=== PATIENT | male | born 1975 | race American Indian/Alaskan Native ===

== ENCOUNTER 2017-04-19 19:55 | Emergency (ER) | payer SELFPAY ==
[2017-04-19 20:10] VITALS: BP 119/77
[2017-04-19 20:48] LABS: Hematocrit 40.5 % (35.5-45.6); Hemoglobin 13.6 gm/dl (11.8-15.2); Mean Corpuscular HGB Conc 34 % (32-34); Mean Corpuscular Hemoglobin 34 pg (28-32); Mean Corpuscular Volume 102 fl (84-94); Platelet Count 489 K/mm3 (140-440); Red Blood Count 3.97 M/mm3 (3.65-5.03); Red Cell Distribution Width 14.7 % (13.2-15.2); White Blood Count 3.2 K/mm3 (4.5-11.0)
[2017-04-19 21:00] LABS: BUN/Creatinine Ratio 7.14; Blood Urea Nitrogen 5 mg/dL (9-20); Calcium 8.9 mg/dL (8.4-10.2); Carbon Dioxide 25 mmol/L (22-30); Chloride 100.6 mmol/L (98-107); Creatine Kinase 296 units/L (55-170); Glucose 88 mg/dL (75-100); Sodium 142 mmol/L (137-145)
[2017-04-19 21:05] LABS: Anion Gap 21 mmol/L; Potassium 4.1 mmol/L (3.6-5.0)
[2017-04-19 21:29] LABS: Blastocytes % (Manual) 0 %
[2017-04-19 21:32] LABS: Diff Status Complete; Large Platelets Few; Platelet Estimate Consistent w Auto; RBC Morphology Normal
--- NOTE | 2017-04-24 11:06 | ED Elopement Review ---
ED Pt Elopement review - Results review Lab results: Laboratory Tests 04/19/17 04/19/17 04/19/17 20:19 20:19 20:19 WBC RBC Hgb Hct MCV MCH MCHC RDW Plt Count Lymph % (Auto) Add Manual Diff Total Counted Seg Neutrophils % Seg Neuts % (Manual) Band Neutrophils % Lymphocytes % (Manual) Reactive Lymphs % (Man) Monocytes % (Manual) Eosinophils % (Manual) Basophils % (Manual) Metamyelocytes % Myelocytes % Promyelocytes % Blast Cells % Nucleated RBC % Seg Neutrophils # Man Band Neutrophils # Lymphocytes # (Manual) Abs React Lymphs (Man) Monocytes # (Manual) Eosinophils # (Manual) Basophils # (Manual) Metamyelocytes # Myelocytes # Promyelocytes # Blast Cells # WBC Morphology Hypersegmented Neuts Hyposegmented Neuts Hypogranular Neuts Smudge Cells Toxic Granulation Toxic Vacuolation Dohle Bodies Pelger-Huet Anomaly Bri Rods Platelet Estimate Clumped Platelets Plt Clumps, EDTA Large Platelets Giant Platelets Platelet Satelliting Plt Morphology Comment RBC Morphology Dimorphic RBCs Polychromasia Hypochromasia Poikilocytosis Anisocytosis Microcytosis Macrocytosis Spherocytes Pappenheimer Bodies Sickle Cells Target Cells Tear Drop Cells Ovalocytes Helmet Cells [place] Bodies [place] Rings [place] Cells Bite Cells Crenated Cell Elliptocytes Acanthocytes (Spur) Rouleaux Hemoglobin C Crystals Schistocytes Malaria parasites ESR Grant Bodies Hem Pathologist Commnt VBG pH 7.405 Sodium 142 Potassium 4.1 Chloride 100.6 Carbon Dioxide 25 Anion Gap 21 BUN 5 L Creatinine 0.7 L Estimated GFR > 60 BUN/Creatinine Ratio 7.14 Glucose 88 Lactic Acid 1.60 Calcium 8.9 Magnesium Total Creatine Kinase 296 H Troponin T < 0.010 C-Reactive Protein NT-Pro-B Natriuret Pep 34.47 Plasma/Serum Alcohol 04/19/17 04/19/17 04/19/17 20:19 20:19 20:19 WBC 3.2 L RBC 3.97 Hgb 13.6 Hct 40.5 MCV 102 H MCH 34 H MCHC 34 RDW 14.7 Plt Count 489 H Lymph % (Auto) Director Online [employer] Add Manual Diff Complete Total Counted 100 Seg Neutrophils % Director Online Marketing Seg Neuts % (Manual) 33.0 L Band Neutrophils % 0 Lymphocytes % (Manual) 54.0 H Reactive Lymphs % (Man) 0 Monocytes % (Manual) 10.0 H Eosinophils % (Manual) 2.0 Basophils % (Manual) 1.0 Metamyelocytes % 0 Myelocytes % 0 Promyelocytes % 0 Blast Cells % 0 Nucleated RBC % Not Reportable Seg Neutrophils # Man 1.1 L Band Neutrophils # 0.0 Lymphocytes # (Manual) 1.7 Abs React Lymphs (Man) 0.0 Monocytes # (Manual) 0.3 Eosinophils # (Manual) 0.1 Basophils # (Manual) 0.0 Metamyelocytes # 0.0 Myelocytes # 0.0 Promyelocytes # 0.0 Blast Cells # 0.0 WBC Morphology Not Reportable Hypersegmented Neuts Not Reportable Hyposegmented Neuts Not Reportable Hypogranular Neuts Not Reportable Smudge Cells Not Reportable Toxic Granulation Not Reportable Toxic Vacuolation Not Reportable Dohle Bodies Not Reportable Pelger-Huet Anomaly Not Reportable Bri Rods Not Reportable Platelet Estimate Consistent w auto Clumped Platelets Not Reportable Plt Clumps, EDTA Not Reportable Large Platelets Few Giant Platelets Not Reportable Platelet Satelliting Not Reportable Plt Morphology Comment Not Reportable RBC Morphology Normal Dimorphic RBCs Not Reportable Polychromasia Not Reportable Hypochromasia Not Reportable Poikilocytosis Not Reportable Anisocytosis Not Reportable Microcytosis Not Reportable Macrocytosis Not Reportable Spherocytes Not Reportable Pappenheimer Bodies Not Reportable Sickle Cells Not Reportable Target Cells Not Reportable Tear Drop Cells Not Reportable Ovalocytes Not Reportable Helmet Cells Not Reportable [place] Bodies Not Reportable [place] Rings Not Reportable Bone Gap Cells Not Reportable Bite Cells Not Reportable Crenated Cell Not Reportable Elliptocytes Not Reportable Acanthocytes (Spur) Not Reportable Rouleaux Not Reportable Hemoglobin C Crystals Not Reportable Schistocytes Not Reportable Malaria parasites Not Reportable ESR 8 Grant Bodies Not Reportable Hem Pathologist Commnt No VBG pH Sodium Potassium Chloride Carbon Dioxide Anion Gap BUN Creatinine Estimated GFR BUN/Creatinine Ratio Glucose Lactic Acid Calcium Magnesium 2.00 Total Creatine Kinase Troponin T C-Reactive Protein 0.00 NT-Pro-B Natriuret Pep Plasma/Serum Alcohol 04/19/17 20:19 WBC RBC Hgb Hct MCV MCH MCHC RDW Plt Count Lymph % (Auto) Add Manual Diff Total Counted Seg Neutrophils % Seg Neuts % (Manual) Band Neutrophils % Lymphocytes % (Manual) Reactive Lymphs % (Man) Monocytes % (Manual) Eosinophils % (Manual) Basophils % (Manual) Metamyelocytes % Myelocytes % Promyelocytes % Blast Cells % Nucleated RBC % Seg Neutrophils # Man Band Neutrophils # Lymphocytes # (Manual) Abs React Lymphs (Man) Monocytes # (Manual) Eosinophils # (Manual) Basophils # (Manual) Metamyelocytes # Myelocytes # Promyelocytes # Blast Cells # WBC Morphology Hypersegmented Neuts Hyposegmented Neuts Hypogranular Neuts Smudge Cells Toxic Granulation Toxic Vacuolation Dohle Bodies Pelger-Huet Anomaly Bri Rods Platelet Estimate Clumped Platelets Plt Clumps, EDTA Large Platelets Giant Platelets Platelet Satelliting Plt Morphology Comment RBC Morphology Dimorphic RBCs Polychromasia Hypochromasia Poikilocytosis Anisocytosis Microcytosis Macrocytosis Spherocytes Pappenheimer Bodies Sickle Cells Target Cells Tear Drop Cells Ovalocytes Helmet Cells [place] Bodies [place] Rings [place] Cells Bite Cells Crenated Cell Elliptocytes Acanthocytes (Spur) Rouleaux Hemoglobin C Crystals Schistocytes Malaria parasites ESR Grant Bodies Hem Pathologist Commnt VBG pH Sodium Potassium Chloride Carbon Dioxide Anion Gap BUN Creatinine Estimated GFR BUN/Creatinine Ratio Glucose Lactic Acid Calcium Magnesium Total Creatine Kinase Troponin T C-Reactive Protein NT-Pro-B Natriuret Pep Plasma/Serum Alcohol 0.35 H - Call Back decision Pt Call Back Decision: No action required
== END 2017-04-19 20:30 | disposition left against medical advice (07) ==
LOC: ED 19:55
DX: R07.9 Chest pain, unspecified (principal); Z53.21 Procedure and treatment not carried out due to patient leaving prior to being seen by health care provider
CPT/HCPCS: 36415; 80048; 82140; 82550; 82805; 83735; 83880; 84484; 85007; 85025; 85652; 86140; 87040; 93005; 93010; G0480; 80320

== ENCOUNTER 2017-04-21 14:27 | Emergency (ER) | payer SELFPAY ==
[2017-04-21] MEDS ORDERED: PERCOCET 5/325 PO ONE (19:23)
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
[2017-04-21 22:30] VITALS: BP 116/72
== END 2017-04-21 22:04 | disposition home or self-care (01) ==
LOC: ED 14:27
DX: R07.9 Chest pain, unspecified (principal); M79.601 Pain in right arm; F17.200 Nicotine dependence, unspecified, uncomplicated
CPT/HCPCS: 99283

== ENCOUNTER 2017-05-06 07:04 | Emergency (ER) | payer SELFPAY ==
[2017-05-06 07:45] LABS: Basophils % (Auto) 1.3 % (0.0-1.8); Eosinophils % (Auto) 0.2 % (0.0-4.3); Hematocrit 43.5 % (35.5-45.6); Hemoglobin 14.5 gm/dl (11.8-15.2); Mean Corpuscular HGB Conc 33 % (32-34); Mean Corpuscular Hemoglobin 35 pg (28-32); Mean Corpuscular Volume 104 fl (84-94); Platelet Count 203 K/mm3 (140-440); Red Blood Count 4.17 M/mm3 (3.65-5.03); Red Cell Distribution Width 14.2 % (13.2-15.2); White Blood Count 2.4 K/mm3 (4.5-11.0)
[2017-05-06 08:03] LABS: Anion Gap 25 mmol/L; BUN/Creatinine Ratio 8.33; Blood Urea Nitrogen 5 mg/dL (9-20); Calcium 8.9 mg/dL (8.4-10.2); Carbon Dioxide 25 mmol/L (22-30); Chloride 95.7 mmol/L (98-107); Glucose 83 mg/dL (75-100); Sodium 142 mmol/L (137-145)
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
[2017-05-06] MEDS ORDERED: NACL 0.9% 1000 ML 1,000 ML IV ONE (10:30)
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
[2017-05-06] MEDS ORDERED: TORADOL IV ONE (10:31)
[2017-05-06 12:47] VITALS: BP 135/83
--- NOTE | 2017-05-06 13:05 | Cat Scan Report ---
CT scan of cervical spine: History: Neck pain. Findings: The odontoid process and the lateral mass appears intact. The posterior arch of atlas appears normal. Normal height of vertebral bodies. Minimal decrease in height of C6-C7 and C7-T1. Sclerotic adjacent articular surfaces with osteophyte suggestive of cervical spondylosis. Normal prevertebral soft tissue. No fracture. Impression: Spondylosis lower cervical spine.
[2017-05-06] MEDS ORDERED: ZOFRAN ONE (13:17)
== END 2017-05-06 13:26 | disposition home or self-care (01) ==
LOC: ED 07:04
DX: M54.2 Cervicalgia (principal); G89.29 Other chronic pain; F17.200 Nicotine dependence, unspecified, uncomplicated; X50.1XXA Overexertion from prolonged static or awkward postures, initial encounter; Y93.89 Activity, other specified; Y99.8 Other external cause status; Y92.89 Other specified places as the place of occurrence of the external cause
CPT/HCPCS: 36415; 71020; 72125; 80048; 84484; 85025; 93005; 93010; 96361; 96374; 99285; J1885; J2405; J7030

== ENCOUNTER 2017-06-14 10:58 | Emergency (ER) | payer OTHER ==
[2017-06-14 11:05] VITALS: BP 124/88
--- NOTE | 2017-06-14 12:14 | Emergency Department Report ---
Chief Complaint: Neuro Symptoms/Deficit Stated Complaint: RT SIDED WEAKNESS Time Seen by Provider: 06/14/17 12:10 - HPI History of Present Illness: Pt states he has been up here 10 times for his whole body cramping up. PT states he can not move and he tried to get disability but he keeps getting denied. PT states he has had XRs and he has been dx with arthritis PT states he has had this problem for the last three years. - ROS Review of Systems: + R hand pain + body cramps + dark urine - Exam Vital Signs: Vital Signs 06/14/17 11:00 Temperature 97.9 F Pulse Rate 95 H Respiratory 20 Rate Blood Pressure 124/88 O2 Sat by Pulse 100 Oximetry Physical Exam: PT is alert, however, slurred speech is noted PT is ambulatory with a steady gait No focal weakness MSE screening note: Focused history and physical exam performed. Due to findings the following was ordered: labs ED Disposition for MSE Condition: Stable Referrals: PRIMARY CARE, [Primary Care Provider] - 3-5 Days
[2017-06-14 12:50] LABS: Hematocrit 46.3 % (35.5-45.6); Hemoglobin 15.6 gm/dl (11.8-15.2); Mean Corpuscular HGB Conc 34 % (32-34); Mean Corpuscular Hemoglobin 35 pg (28-32); Mean Corpuscular Volume 103 fl (84-94); Platelet Count 263 K/mm3 (140-440); Red Blood Count 4.49 M/mm3 (3.65-5.03); Red Cell Distribution Width 13.5 % (13.2-15.2); White Blood Count 3.7 K/mm3 (4.5-11.0)
[2017-06-14 13:08] LABS: Alanine Aminotransferase 39 units/L (7-56); Albumin 4.5 g/dL (3.9-5); Alkaline Phosphatase 46 units/L (35-129); Anion Gap 23 mmol/L; BUN/Creatinine Ratio 8.57; Blood Urea Nitrogen 6 mg/dL (9-20); Calcium 8.9 mg/dL (8.4-10.2); Carbon Dioxide 24 mmol/L (22-30); Creatine Kinase 173 units/L (55-170); Glucose 90 mg/dL (75-100); Potassium 3.5 mmol/L (3.6-5.0); Sodium 142 mmol/L (137-145); Total Protein 8.8 g/dL (6.3-8.2)
[2017-06-14 13:30] LABS: Basophils % (Manual) 0 % (0.0-1.8); Blastocytes % (Manual) 0 %; Diff Status Complete; Eosinophils % (Manual) 0 % (0.0-4.3); RBC Morphology Normal
== END 2017-06-14 20:45 | disposition left against medical advice (07) ==
LOC: ED 10:58
DX: R53.1 Weakness (principal); Z53.21 Procedure and treatment not carried out due to patient leaving prior to being seen by health care provider
CPT/HCPCS: 36415; 80053; 82550; 85007; 85025; G0480; 80320; 93005; 93010

== ENCOUNTER 2017-06-18 13:39 | Emergency (ER) | payer SELFPAY ==
[2017-06-18 14:52] LABS: Hematocrit 48.5 % (35.5-45.6); Hemoglobin 16.6 gm/dl (11.8-15.2); Mean Corpuscular HGB Conc 34 % (32-34); Mean Corpuscular Hemoglobin 35 pg (28-32); Mean Corpuscular Volume 103 fl (84-94); Platelet Count 233 K/mm3 (140-440); Red Blood Count 4.71 M/mm3 (3.65-5.03); Red Cell Distribution Width 13.4 % (13.2-15.2); White Blood Count 3.2 K/mm3 (4.5-11.0)
[2017-06-18 15:07] LABS: Anion Gap 22 mmol/L; Blood Urea Nitrogen 4 mg/dL (9-20); Calcium 8.9 mg/dL (8.4-10.2); Carbon Dioxide 27 mmol/L (22-30); Chloride 93.5 mmol/L (98-107); Glucose 113 mg/dL (75-100); Potassium 3.4 mmol/L (3.6-5.0); Sodium 139 mmol/L (137-145)
[2017-06-18 15:45] LABS: Basophils % (Manual) 0 % (0.0-1.8); Blastocytes % (Manual) 0 %; Eosinophils % (Manual) 0 % (0.0-4.3)
[2017-06-18 15:46] LABS: Crenated RBC 1+; Diff Status Complete; Macrocytosis 1+; Platelet Estimate Consistent w Auto
[2017-06-18] MEDS ORDERED: TORADOL IM ONE (22:31)
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
[2017-06-18 23:25] VITALS: BP 128/84
--- NOTE | 2017-06-19 09:29 | XRay Report ---
XRAY RIGHT SHOULDER THREE VIEWS: 06/18/17 22:41 CLINICAL: Right shoulder pain. FINDINGS: Normal glenohumeral alignment. Normal AC joint. No fracture or dislocation. No bone lesion. Normal soft tissues. IMPRESSION: Normal.
== END 2017-06-18 23:24 | disposition home or self-care (01) ==
LOC: ED 13:39
DX: M25.511 Pain in right shoulder (principal); F17.210 Nicotine dependence, cigarettes, uncomplicated
CPT/HCPCS: 36415; 73030; 80048; 85007; 85025; 96372; 99283; J1885

== ENCOUNTER 2017-09-13 13:58 | Emergency (ER) | payer OTHER ==
[2017-09-13] MEDS ORDERED: DILAUDID IV ONE (15:56)
[2017-09-13] MEDS ORDERED: KEPPRA 1,000 MG/NS 0.75% 100ML 1,000 MG/100 ML BAG IV ONE (15:57)
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
[2017-09-13 16:53] LABS: Hematocrit 48.2 % (35.5-45.6); Hemoglobin 16.6 gm/dl (11.8-15.2); Mean Corpuscular HGB Conc 34 % (32-34); Mean Corpuscular Hemoglobin 35 pg (28-32); Mean Corpuscular Volume 103 fl (84-94); Platelet Count 314 K/mm3 (140-440); Red Blood Count 4.68 M/mm3 (3.65-5.03); Red Cell Distribution Width 13.6 % (13.2-15.2); White Blood Count 2.7 K/mm3 (4.5-11.0)
[2017-09-13 17:05] LABS: Anion Gap 23 mmol/L; BUN/Creatinine Ratio 7; Blood Urea Nitrogen 5 mg/dL (9-20); Calcium 9.1 mg/dL (8.4-10.2); Carbon Dioxide 28 mmol/L (22-30); Chloride 96.4 mmol/L (98-107); Glucose 80 mg/dL (75-100); Potassium 4.2 mmol/L (3.6-5.0); Sodium 143 mmol/L (137-145)
[2017-09-13 18:06] VITALS: BP 137/104
== END 2017-09-13 18:43 | disposition home or self-care (01) ==
LOC: ED 13:58
DX: R56.9 Unspecified convulsions (principal); M25.511 Pain in right shoulder; I10 Essential (primary) hypertension; F17.210 Nicotine dependence, cigarettes, uncomplicated
CPT/HCPCS: 36415; 80048; 85027; 96374; 96375; 99285; J1170; J1953

== ENCOUNTER 2017-12-28 15:31 | Emergency (ER) | payer SELFPAY ==
[2017-12-28 16:53] VITALS: BP 154/109
[2017-12-28] MEDS ORDERED: KEPPRA PO ONE (20:35)
[2017-12-28] MEDS ORDERED: FIORICET PO ONE (20:35)
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
== END 2017-12-28 20:55 | disposition home or self-care (01) ==
LOC: ED 15:31
DX: G44.209 Tension-type headache, unspecified, not intractable (principal); G47.09 Other insomnia; I10 Essential (primary) hypertension; F17.200 Nicotine dependence, unspecified, uncomplicated
CPT/HCPCS: 99281

== ENCOUNTER 2018-06-20 19:54 | Emergency (ER) | payer SELFPAY ==
[2018-06-20 20:45] LABS: Hematocrit 47.3 % (35.5-45.6); Hemoglobin 16.1 gm/dl (11.8-15.2); Mean Corpuscular HGB Conc 34 % (32-34); Mean Corpuscular Hemoglobin 34 pg (28-32); Mean Corpuscular Volume 99 fl (84-94); Platelet Count 494 K/mm3 (140-440); Red Blood Count 4.77 M/mm3 (3.65-5.03); Red Cell Distribution Width 14.8 % (13.2-15.2)
[2018-06-20 20:52] LABS: INR 0.82 (0.87-1.13); Partial Thromboplastin Time 31.7 Sec. (24.2-36.6)
[2018-06-20 21:06] LABS: BUN/Creatinine Ratio 6; Blood Urea Nitrogen 5 mg/dL (9-20); Calcium 9.5 mg/dL (8.4-10.2); Hemolysis Index 14
[2018-06-21 00:12] LABS: Mucus,Urine FEW /HPF
[2018-06-21 00:35] LABS: Bilirubin,Urine Negative (Negative); Blood,Urine Negative (Negative); Color,Urine Yellow (Yellow)
[2018-06-21 09:49] LABS: Alanine Aminotransferase 21 units/L (7-56); Albumin 4.8 g/dL (3.9-5); Bilirubin,Direct < 0.2 mg/dL (0-0.2)
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
[2018-06-21 11:43] VITALS: BP 138/78
== END 2018-06-21 11:15 | disposition home or self-care (01) ==
LOC: ED 19:54
DX: K60.2 Anal fissure, unspecified (principal); R82.99 Other abnormal findings in urine; I10 Essential (primary) hypertension; F17.200 Nicotine dependence, unspecified, uncomplicated
CPT/HCPCS: 36415; 80048; 80074; 81001; 82271; 82550; 85027; 85610; 85730; 99283